=== PATIENT | male | born 1985 | race Caucasian/White ===

== ENCOUNTER 2022-07-13 16:09 | Emergency (ER) | payer OTHER, SELFPAY ==
[2022-07-13 16:27] VITALS: BP 138/86; PULSE 92; RESP 20; TEMP 36.8; O2SAT 100
--- NOTE | 2022-07-13 16:43 | ED.DENTAL ---
HPI - Dental/Oral General Chief complaint: Dental/Oral Stated complaint: Dental Pain Time Seen by Provider: 07/13/22 16:43 Source: patient, RN notes reviewed and old records reviewed Mode of arrival: ambulatory Limitations: no limitations History of Present Illness HPI Narrative: 36-year-old male presents to the [facility] with complaints of dental pain. Patient has had dental pain for several days. Swelling noted to the right upper and lower gingiva. Very poor dentition with multiple decayed teeth and missing teeth throughout the entire mouth. Has taking Tylenol with no relief Has not seen a dentist in many years Related Data Allergies Allergy/AdvReac Type Severity Reaction Status Date / Time No Known Allergies Allergy Verified 07/13/22 16:29 Review of Systems Review of Systems: All systems reviewed & are unremarkable except as noted in HPI and below Constitutional: Constitutional: Reports no additional constitutional complaints Eyes: Eyes: Reports no additional eye complaints ENT: Reports as per HPI Cardiovascular: Cardiovascular: Reports no additional cardiovascular complaints, Denies chest pain and Denies dyspnea Respiratory: Respiratory: Reports no additional respiratory complaints, Denies chest congestion, Denies cough and Denies dyspnea Gastrointestinal: Gastrointestinal: Reports no additional gastrointestinal complaints, Denies abdominal pain, Denies nausea and Denies vomiting Musculoskeletal: Musculoskeletal: Reports no additional musculoskeletal complaints Integumentary/Breasts: Skin/Breast: Reports system reviewed and no additional complaints, except as docu Neurologic: Reports system reviewed and no additional complaints, except as documented Psychiatric: Psychiatric: Reports no additional psychiatric complaints Allergic/Immunologic: Allergic/Immunologic: Reports no additional allergic/immunologic complaints PMFSH Comments At the time of my signature, I reviewed and agree with the nursing past medical, surgical, social, and family history. There is no relevant family history pertinent to the patient complaint. Exam Const: General: cooperative, well developed, alert, anxious, poor hygiene, uncomfortable, well nourished and overweight Nutritional Appearance: well nourished Orientation/consciousness: patient oriented x3 Limitations: no limitations HENMT: Head: normal to inspection Ears: hearing grossly normal bilaterally and external ears normal Face/Nose/Sinus: Normal external nose present, Normal nares present, Normal nasal mucous membranes and turbinates present and normal facial exam Face and sinus: normal facial exam Mouth: Yes Normal oral and palatal mucosa present, Yes lip normal and Yes moist mucous membranes Teeth and gingiva: abnormal tooth and associated gingiva (Right upper and lower, erythema, swelling, decayed teeth) and poor dentition Throat: posterior oropharynx normal and uvula midline Eyes: General: appearance normal, both eyes and all related structures Alignment and Position: alignment normal Periorbital: periorbital findings normal Conjunctivae: conjunctivae normal Pupils: Equal, round and reactive pupils present EOM: EOMs intact bilaterally Neck: Neck: normal visual inspection, full ROM, no lymphadenopathy and no meningeal signs Chest: Chest palpation & inspection: normal inspection of the chest Resp: Effort & Inspection: normal respiratory effort and able to speak in complete sentences Auscultation: clear to auscultation bilaterally, no crackles, no rales, no rhonchi and no wheezes Cardio: Rate: regular rate Rhythm: regular rhythm Back/Spine/Pelvis: Cervical Spine: cervical ROM normal Thoracic/Lumbar Spine: No thoracic spinal tenderness Skin: General skin exam: normal color and no rashes or lesions noted Lesions: no lesions Rashes: no rashes Wounds: no wounds Neuro: General: patient oriented x3, gait normal, tone normal, moves all extremities and no meningeal
== END 2022-07-13 16:55 | disposition home or self-care (01) ==
PROVIDERS: Emergency Provider Nurse Practitioner
DX: K04.7 Periapical abscess without sinus (principal); K02.9 Dental caries, unspecified
CPT/HCPCS: 99213; G0463

== ENCOUNTER 2024-04-23 09:06 | Emergency (ER) | payer OTHER, MEDICAID, SELFPAY ==
--- NOTE | ~2024-04-23 | XR_ITS ---
EXAMINATION: XR chest 2V DATE: 04/23/2024 09:44 INDICATION: Chest pain. Shortness of breath. TECHNIQUE: Frontal and lateral views of the chest were obtained. COMPARISON: None. FINDINGS: There are airspace opacities in all left lung zones and sparing of left lung apex. There ar e airspace opacities in right midlung zone. There is likely a small moderate-sized left pleural effus ion. No pneumothorax. The heart size is normal. IMPRESSION: 1. Diffuse lung disease, left worse than right, consistent with pneumonia. 2. Small to moderate-sized left pleural effusion. Reviewed, dictated and finalized at location A.
[2024-04-23 09:10] VITALS: BP 137/86; PULSE 122; RESP 29; TEMP 37; O2SAT 96
--- NOTE | 2024-04-23 09:12 | ECG_ITS ---
Test Date: 2024-04-23 09:18:12 Measurements Intervals [place] Rate: 122 P: 72 MN: 126 QRS: 75 QRSD: 101 T: 42 QT: 282 QTc: 402 Interpretive Statements SINUS TACHYCARDIA OTHERWISE NORMAL ECG No previous ECG available for comparison Electronically Signed On 04-23-2024 13:12:26 CDT by Diego Copeland M.D.
[2024-04-23 09:17] VITALS: O2SAT 98
[2024-04-23] MEDS: ASPIRIN 81 MG CHEWABLE TABLET 324 MG PO (09:31)
[2024-04-23 09:44] LABS: INR 1.2; Prothrombin Time 15.3 Seconds (11.1-14.7)
[2024-04-23 09:45] LABS: Partial Thromboplastin Time 27.4 Seconds (22.3-36.8)
[2024-04-23 10:01] LABS: Hematocrit 37.4 % (42.0-52.0); Hemoglobin 13.1 g/dL (14.0-18.0); Mean Corpuscular Hemoglobin 30.3 pg (26-34); Mean Corpuscular Volume 86.4 fl (80-100); Platelet Count Result 280 k/mm3 (150-375); Red Blood Count 4.33 M/mm3 (4.6-6.20); Red Cell Distribution Width 13.9 % (11.5-14.5); White Blood Count 13.1 K/mm3 (4.5-10.0)
--- NOTE | 2024-04-23 10:12 | ED_ITS ---
HPI - Chest Pain General Chief Complaint: Chest Pain Stated Complaint: SOB, chest pain Time Seen by Provider: 04/23/24 09:12 History of Present Illness HPI narrative: Patient is a 38-year-old male who presents ER with shortness of breath and cough. Ongoing for 9 days. Reports he had lifted a motor for truck and he thinks that may have been what caused it. No sudden onset shortness of breath when he did that. Had some pain in the rib. He woke up the next day coughing. He has been having fevers and chills. He is dyspneic at rest. No known sick contacts. Related Data Allergies Allergy/AdvReac Type Severity Reaction Status Date / Time No Known Allergies Allergy Verified 07/13/22 16:29 Review of Systems Review of Systems: All systems reviewed & are unremarkable except as noted in HPI and below Constitutional: Constitutional: Reports chills, Reports fatigue and Reports fever(s) ENT: Reports system reviewed and no additional complaints, except as documented Cardiovascular: Cardiovascular: Reports no additional cardiovascular complaints Respiratory: Respiratory: Reports cough, Reports dyspnea and Denies wheezing Gastrointestinal: Gastrointestinal: Reports no additional gastrointestinal complaints PMFSH Past Medical History Medical History (Updated 04/23/24 @ 10:38 by Nathanael Merritt MD) Healthy adult male Surgical History Surgical History (Updated 04/23/24 @ 10:15 by Nathanael Merritt MD) No pertinent past surgical history Exam Narrative: GENERAL: ill-appearing, well-nourished, and in no acute distress. HEAD: Normocephalic, atraumatic. ENT: Mucous membranes moist. NECK: Supple. CHEST: tachypnea with decreased breath sounds on left side in occasional rales scattered bilaterally. HEART: tachycardic regular. Normal peripheral pulses. ABDOMEN: Soft, nontender, nondistended. EXTREMITIES: Normal range of motion. No edema. SKIN: Warm, dry, no rash. NEURO: Alert and oriented x3. PSYCH: Normal mood and affect. Course Course Emergency Course: I have interviewed and examined the patient. I have determined that the patient has the capacity to understand the information relevant to their care. The patient also understands the consequences of the various options after we discussed relevant information. I feel that the patient is able to understand the relevant information and responds appropriately to questions. I have attempted to persuade the patient to stay to receive care. The patient understands by leaving there is a possibility of , disability, or serious injury. Despite the above information the patient has made the decision to leave against medical advice. I have attempted to persuade the patient to follow up with a physician DARRYN. I have also notified the patient they may return at any time to the ED for further care. 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 He has no one who can help him do this. He has refused BiPAP for comfort despite his significant tachypnea and frequent coughing. Patient does have some hyponatremia. He has massive infection to his left lung with additional infection to the right lung. I discussed that he may even have puss surrounding the outside of his lung and I would like to perform a CT scan. Patient is also refusing water stating that he only drinks Gatorade. 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 He verbalized understanding of this. I ordered the patient antibiotics, I was going to administer a 30 ml/kg bolus of IV fluid but the patient will not stay. Vital Signs Vital signs: Vital Signs Temperature 98.6 F 04/23/24 09:10 Pulse Rate 122 H 04/23/24 09:10 Respiratory Rate 29 H 04/23/24 09:10 Blood Pressure 137/86 04/23/24 09:10 Pulse Oximetry 96 04/23/24 09:10 Oxygen Delivery Room Air 04/23/24 09:10 Temperature 98.6 F 04/23/24 09:10 Pulse Rate 122 H 04/23/24 09:10 Respiratory Rate 29 H 04/23/24 09:10 Blood Pressure 137/86 04/23/24 09:10 Pulse Oximetry 96 04/23/24 10:30 Oxygen Delivery BiPAP 04/23/24 10:30 MDM - Chest Pain Lab Data 04/23/24 09:51 04/23/24 10:16 Labs: Lab Results 04/23/24 04/23/24 04/23/24 Range/Units 09:24 09:51 10:16 WBC 13.1 H (4.5-10.0) K/mm3 RBC 4.33 L (4.6-6.20) M/mm3 Hgb 13.1 L (14.0-18.0) g/dL Hct 37.4 L (42.0-52.0) % MCV 86.4 (80-100) fl MCH 30.3 (26-34) pg MCHC 35.0 (32-36) g/dl RDW 13.9 (11.5-14.5) % Plt Count 280 (150-375) k/mm3 MPV 11.0 H (7.4-10.4) fl Immature Gran % (Auto) Not Reportable Neut % (Auto) Not Reportable Lymph % (Auto) Not Reportable [place] % (Auto) Not Reportable Eos % (Auto) Not Reportable Baso % (Auto) Not Reportable Lymph # (Auto) Not Reportable [place] # (Auto) Not Reportable Eos # (Auto) Not Reportable Baso # (Auto) Not Reportable Abs Immat Gran (auto) Not Reportable Absolute Neuts (auto) Not Reportable Absolute Nucleated RBC Not Reportable Total Counted 100 Neutrophils % (Manual) 84 H (46-73) % Band Neutrophils % 10 H (0-6) % Lymphocytes % (Manual) 4.0 L (18-44) % Monocytes % (Manual) 2 L (3-9) % Nucleated RBC % Not Reportable Abs Neuts (Manual) 12.31 H (1.3-6.7) K/mm3 Abs Lymphs (Manual) 0.52 L (1.1-4.5) K/mm3 Abs Monocytes (Manual) 0.26 (0.1-0.90) K/mm3 Platelet Estimate Adequate (Adequate) Crenated Cell 1+ Schistocytes None seen PT 15.3 H (11.1-14.7) Seconds INR 1.2 APTT 27.4 (22.3-36.8) Seconds Sodium 122 L (137-145) mmol/L Potassium 3.2 L (3.4-5.0) mmol/L Chloride 84 L (98-107) mmol/L Carbon Dioxide 26 (22-30) mmol/L Anion Gap 12 (4-12) mmol/L BUN 19 (9-20) mg/dL Creatinine 1.10 (0.7-1.3) mg/dL Estim Creat Clear Calc 72 ml/min Estimated GFR > 60 (59 - ) Glucose 111 H (65-110) mg/dL Lactic Acid 2.9 H (0.7-2.0) mmol/L Calcium 7.8 L (8.4-10.2) mg/dL Total Bilirubin 0.8 (0.2-1.3) mg/dL AST 70 H (17-59) U/L ALT 22 (6-50) U/L Alkaline Phosphatase 104 (38-126) U/L Troponin I < 0.012 (0.000-0.034) ng/mL Total Protein 7.0 (6.3-8.2) g/dL Albumin 3.2 L (3.5-5.1) g/dL Lipase 124 (23-300) U/L Influenza A (RT-PCR) (Negative) Influenza B (RT-PCR) (Negative) RSV (RT-PCR) (Negative) SARS-CoV-2 RNA (RT-PCR) (Negative) 04/23/24 Range/Units 10:20 WBC (4.5-10.0) K/mm3 RBC (4.6-6.20) M/mm3 Hgb (14.0-18.0) g/dL Hct (42.0-52.0) % MCV (80-100) fl MCH (26-34) pg MCHC (32-36) g/dl RDW (11.5-14.5) % Plt Count (150-375) k/mm3 MPV (7.4-10.4) fl Immature Gran % (Auto) Neut % (Auto) Lymph % (Auto) [place] % (Auto) Eos % (Auto) Baso % (Auto) Lymph # (Auto) [place] # (Auto) Eos # (Auto) Baso # (Auto) Abs Immat Gran (auto) Absolute Neuts (auto) Absolute Nucleated RBC Total Counted Neutrophils % (Manual) (46-73) % Band Neutrophils % (0-6) % Lymphocytes % (Manual) (18-44) % Monocytes % (Manual) (3-9) % Nucleated RBC % Abs Neuts (Manual) (1.3-6.7) K/mm3 Abs Lymphs (Manual) (1.1-4.5) K/mm3 Abs Monocytes (Manual) (0.1-0.90) K/mm3 Platelet Estimate (Adequate) Crenated Cell Schistocytes PT (11.1-14.7) Seconds INR APTT (22.3-36.8) Seconds Sodium (137-145) mmol/L Potassium (3.4-5.0) mmol/L Chloride (98-107) mmol/L Carbon Dioxide (22-30) mmol/L Anion Gap (4-12) mmol/L BUN (9-20) mg/dL Creatinine (0.7-1.3) mg/dL Estim Creat Clear Calc ml/min Estimated GFR (59 - ) Glucose (65-110) mg/dL Lactic Acid (0.7-2.0) mmol/L Calcium (8.4-10.2) mg/dL Total Bilirubin (0.2-1.3) mg/dL AST (17-59) U/L ALT (6-50) U/L Alkaline Phosphatase (38-126) U/L Troponin I (0.000-0.034) ng/mL Total Protein (6.3-8.2) g/dL Albumin (3.5-5.1) g/dL Lipase (23-300) U/L Influenza A (RT-PCR) Negative (Negative) Influenza B (RT-PCR) Negative (Negative) RSV (RT-PCR) Negative (Negative) SARS-CoV-2 RNA (RT-PCR) Negative (Negative) Imaging Data Radiologist's impression: ITS Impressions Chest X-Ray 04/23/24 09:49 IMPRESSION: 1. Diffuse lung disease, left worse than right, consistent with pneumonia. 2. Small to moderate-sized left pleural effusion. Discharge Plan Discharge Clinical Impression: Pneumonia, Hyponatremia Patient Disposition: Left Against Medical Advice Condition: Serious Prescriptions: No Action penicillin V potassium 500 mg tablet 500 mg PO Q12H 10 Days Qty: 20 0RF Follow-up/Referrals: PHYSICIAN,WELDING MACHINE OPERATOR [employer] [Primary Care Provider] -
[2024-04-23 10:30] VITALS: O2SAT 96
[2024-04-23 10:30] LABS: Lactic Acid Reflex 2.9 mmol/L (0.7-2.0)
[2024-04-23 10:31] LABS: Alanine Aminotransferase 22 U/L (6-50); Albumin Level 3.2 g/dL (3.5-5.1); Alkaline Phosphatase 104 U/L (38-126); Anion Gap 12 mmol/L (4-12); Aspartate Amino Transferase 70 U/L (17-59); Bilirubin,Total 0.8 mg/dL (0.2-1.3); Blood Urea Nitrogen 19 mg/dL (9-20); Calcium 7.8 mg/dL (8.4-10.2); Carbon Dioxide 26 mmol/L (22-30); Chloride 84 mmol/L (98-107); Estimated CRCL calculation 72 ml/min; Estimated Glomerular Filt Rate > 60; Glucose 111 mg/dL (65-110); Lipase 124 U/L (23-300); Potassium 3.2 mmol/L (3.4-5.0); Sodium 122 mmol/L (137-145)
--- NOTE | 2024-04-23 10:39 | PC.NURSE ---
Addendum entered by Maggie Yarbrough RN 04/23/24 10:43: This RN gave pt water, pt states, I don't drink water, the shit is nasty. I drink Gatorade. Original Note: 1025 Pt refusing to wear bipap mask, pt asking for a drink and stating he will not be staying in the hospital for treatment, requesting to sign himself out. This RN asked MD Dr. Merritt if pt could have a drink and if he would speak to pt about his condition. Dr. 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 Pt was advised to go to the closest hospital for treatment.
[2024-04-23 10:42] LABS: Troponin I < 0.012 ng/mL (0.000-0.034)
[2024-04-23 10:43] LABS: Band Neutrophils Percent 10 % (0-6); Lymphocytes Absolute Manual 0.52 K/mm3 (1.1-4.5); Monocytes Absolute Manual 0.26 K/mm3 (0.1-0.90); Monocytes Percent Manual 2 % (3-9); Neutrophils Absolute Manual 12.31 K/mm3 (1.3-6.7); Neutrophils Percent Manual 84 % (46-73); Platelet Estimate Adequate (Adequate); Total Cells Counted 100
[2024-04-23 10:44] LABS: Crenated RBC 1+; Schistocytes None Seen
[2024-04-23 11:07] LABS: Influenza A QL RT-PCR Negative (Negative); Influenza B QL RT-PCR Negative (Negative); RSV RNA, RT-PCR Negative (Negative); SARS-CoV-2 RNA PCR Negative (Negative)
[2024-04-23 13:19] LABS: Reflex Lactic Acid Yes or No Add Lactic
--- NOTE | 2024-04-25 17:24 | PC.NURSE ---
Attempted to contact patient at . Call unanswered despite multiple attempts. No voice mail available to leave message. [place] in lab notified.
--- NOTE | 2024-04-25 17:28 | PC.NURSE ---
Attempted to contact patient at . Multiple attempts to contact unsuccessful. No voice mail available to leave message. Tunde in lab notified of attempts to contact patient.
--- NOTE | 2024-04-25 17:30 | PC.NURSE ---
Multiple attempts to contact patient today regarding abnormal lab results. Calls unanswered with no voice mail available to leave message. [place] in lab notified of attempts to contact
== END 2024-04-23 10:47 | disposition left against medical advice (07) ==
PROVIDERS: Emergency Provider Emergency Medicine
DX: J18.9 Pneumonia, unspecified organism (principal); E87.1 Hypo-osmolality and hyponatremia; Z20.822 Contact with and (suspected) exposure to COVID-19
CPT/HCPCS: 36415; 71046; 80053; 83605; 83690; 84484; 85025; 85610; 85730; 87040; 87181; 87637; 93005; 96374; 99284; A9270; J0696